=== PATIENT | female | born 1940 | race Caucasian/White ===

== ENCOUNTER 2018-04-27 05:36 | Emergency (ER) | payer MEDICARE, BC ==
--- NOTE | 2018-04-27 06:01 | Emergency Department Record ---
History of Present Illness - General Source: Patient Mode of Arrival: Ambulatory Limitations: No limitations - History of Present Illness Initial Comments: pt slipped in dog vomit and fell on faceand knees and left elbow. she had no loc. her main pain is in her head, face and l knee MD Complaint: Fall -: Minutes(s) Fall From: Standing When Fall Occurred: Just prior to arrival Fall Witnessed: No Place Fall Occurred: Home Loss of Consciousness: None Prolonged Down Time?: No Symptoms Prior to Fall: None Location: Head, Face Location - Extremities: Left: Elbow, Knee Severity: Mild Quality: Aching, Burning Context: Tripped/slipped Associated Symptoms: Denies - [place] Coma Scale Eye Response: (4) Open spontaneously Motor Response: (6) Obeys commands Verbal Response: (5) Oriented Maciej Total: 15 <Sarah Cordon - Last Filed: 04/27/18 06:59> <LAURA LINARES - Last Filed: 04/27/18 07:32> - General Chief Complaint: Fall Injury Stated Complaint: FELL HIT HEAD Time Seen by Provider: 04/27/18 05:48 - Related Data Home Medications Medication Instructions Recorded Confirmed Last Taken Amlodipine Besylate [Norvasc] 5 mg PO DAILY 04/27/18 04/27/18 Unknown Aspirin [Adult Low Dose Aspirin EC] 81 mg PO DAILY 04/27/18 04/27/18 Unknown Atorvastatin Calcium 40 mg PO QHS 04/27/18 04/27/18 Unknown Citalopram Hydrobromide 40 mg PO DAILY 04/27/18 04/27/18 Unknown [Citalopram HBr] Clopidogrel Bisulfate [Plavix] 75 mg PO DAILY 04/27/18 04/27/18 Unknown Levothyroxine Sodium [Synthroid] 50 mcg PO DAILY 04/27/18 04/27/18 Unknown Metoprolol Tartrate [Lopressor] 50 mg PO BID 04/27/18 04/27/18 Unknown Pantoprazole Sodium [Protonix] 40 mg PO DAILY 04/27/18 04/27/18 Unknown Ramipril [Altace] 10 mg PO BID 04/27/18 04/27/18 Unknown Allergies Allergy/AdvReac Type Severity Reaction Status Date / Time hydrocodone [From Vicodin] Allergy ITCHING Verified 04/27/18 05:40 Sulfa (Sulfonamide Allergy RASH Verified 04/27/18 05:40 Antibiotics) Review of Systems Reviewed: No additional complaints except as noted below Constitutional: Reports: As per HPI. Denies: Chills, Fever, Malaise, Night sweats, Weakness, Weight change Eyes: Reports: As per HPI. Denies: Eye discharge, Eye pain, Photophobia, Vision change ENT: Reports: As per HPI. Denies: Congestion, Dental pain, Ear pain, Epistaxis , Hearing loss, Throat pain Respiratory: Reports: As per HPI. Denies: Cough, Dyspnea, Hemoptysis, Stridor, Wheezes Cardiovascular: Reports: As per HPI. Denies: Arrhythmia, Chest pain, Dyspnea on exertion, Edema, Murmurs, Orthopnea, Palpitations, Paroxysmal nocturnal dyspnea, Rheumatic Fever, Syncope Endocrine: Reports: As per HPI. Denies: Fatigue, Heat or cold intolerance, Polydipsia, Polyuria Gastrointestinal: Reports: As per HPI. Denies: Abdominal pain, Constipation, Diarrhea, Hematemesis, Hematochezia, Melena, Nausea, Vomiting Genitourinary: Reports: As per HPI. Denies: Abnormal menses, Discharge, Dyspareunia, Dysuria, Frequency, Hematuria, Incontinence, Retention, Urgency Musculoskeletal: Reports: As per HPI. Denies: Arthralgia, Back pain, Gout, Joint swelling, Myalgia, Neck pain Skin: Reports: As per HPI. Denies: Bruising, Change in color, Change in hair/ nails, Lesions, Pruritus, Rash Neurological: Reports: As per HPI. Denies: Abnormal gait, Confusion, Headache, Numbness, Paresthesias, Seizure, Tingling, Tremors, Vertigo, Weakness Psychiatric: Reports: As per HPI. Denies: Anxiety, Auditory hallucinations, Depression, Homicidal thoughts, Suicidal thoughts, Visual hallucinations Hematological/Lymphatic: Reports: As per HPI. Denies: Anemia, Blood Clots, Easy bleeding, Easy bruising, Swollen glands <Sarah Cordon - Last Filed: 04/27/18 06:59> Physical Exam - General General Appearance: Alert, Oriented x3, Cooperative, Mild distress - Head Head exam: Normal inspection Head exam detail: Contusion, Hematoma Image of Face/Head: 1 - cintusion, hematoma 2 - contusion, hematoma - Eye Eye exam: Normal appearance, PERRL, EOMI Pupils: Normal accommodation - ENT ENT exam: Normal exam, Mucous membranes moist, Normal external ear exam, Normal orophraynx Ear exam: Normal external inspection. negative: External canal tenderness Nasal Exam: Normal inspection. negative: Discharge, Sinus tenderness Mouth exam: Normal external inspection, Tongue normal Teeth exam: Normal inspection. negative: Dental caries Throat exam: Normal inspection. negative: Tonsillar erythema, Tonsillar exudate - Neck Neck exam: Normal inspection, Full ROM. negative: Tenderness - Respiratory Respiratory exam: Normal lung sounds bilaterally. negative: Respiratory distress - Cardiovascular Cardiovascular Exam: Regular rate, Normal rhythm, Normal heart sounds - GI/Abdominal GI/Abdominal exam: Soft, Normal bowel sounds. negative: Tenderness - Rectal Rectal exam: Deferred - exam: Deferred - Extremities Extremities exam: Normal inspection, Full ROM, Normal capillary refill, Tenderness ( l knee w ecchymosis) - Back Back exam: Reports: Normal inspection, Full ROM. Denies: Muscle spasm, Rash noted, Tenderness - Neurological Neurological exam: Alert, CN II-XII intact, Normal gait, Oriented X3 - Psychiatric Psychiatric exam: Normal affect, Normal mood - Skin Skin exam: Dry, Intact, Normal color, Warm <Sarah Cordon - Last Filed: 04/27/18 06:59> Course - Reevaluation(s) Reevaluation #1: 04/27/18 07:01 care being assumed by dr linares <Sarah Cordon - Last Filed: 04/27/18 06:59> Vital Signs 04/27/18 05:39 Temperature 97.8 F Pulse Rate 71 Respiratory 16 Rate Blood Pressure 149/73 Pulse Ox 98 - Reevaluation(s) Reevaluation #2: The case was signed over at shift change. The pending results are the CT's and XR of the knee 04/27/18 07:00 04/27/18 07:20 The HCT was negative for acute process. Right forehead contusion noted. 04/27/18 07:[address] scan was read as no acute injury. 04/27/18 07:31 The knee XR is negative The patient states no new pain have developed We discussed the results, home care, reasons to return for a recheck if any concerns <LAURA LINARES - Last Filed: 04/27/18 07:32> Medical Decision Making - Lab Data Lab Results 04/27/18 Range/Units 05:47 Ethyl Alcohol 0.000 (0-0.010) g/dL <LAURA LINARES - Last Filed: 04/27/18 07:32> Disposition Disposition: Discharge <Sarah Cordon - Last Filed: 04/27/18 06:59> Time of Disposition: 07:32 <LAURA LINARES - Last Filed: 04/27/18 07:32> Clinical Impression: Head injury Qualifiers: Encounter type: initial encounter Qualified Code(s): S09.90XA - Unspecified injury of head, initial encounter Facial contusion Qualifiers: Encounter type: initial encounter Qualified Code(s): S00.83XA - Contusion of other part of head, initial encounter Contusion, knee Qualifiers: Encounter type: initial encounter Laterality: left Qualified Code(s): S80.02XA - Contusion of left knee, initial encounter Disposition: Home, Self-Care Condition: (1) Good Instructions: Head Injury (ED), Contusion in Adults (ED) Additional Instructions: follow up with family doctor. return sooner if worse. ice to sore areas Forms: Patient Portal Access Quality - Blood Pressure Screening Does Patient Have Any of the Following: No Blood Pressure Classification: Hypertensive Reading Systolic Measurement: 149 Diastolic Measurement: 73 <Sarah Cordon - Last Filed: 04/27/18 06:59> - Quality Measures Quality Measures: Blunt Head Trauma (>2yr) - Blunt Head Trauma - Adult Quality Measure: Measure #415: Utilization of CT for Minor Blunt Head Trauma ICD10 Codes Entered: Yes [place] Score: Please complete [place] Coma Scale above - Blood Pressure Screening Does Patient Have Any of the Following: No Blood Pressure Classification: Hypertensive Reading Systolic Measurement: 149 Diastolic Measurement: 73 <LAURA LINARES - Last Filed: 04/27/18 07:32>
--- NOTE | 2018-04-27 10:38 | CT SCAN REPORT ---
DATE: 04/27/2018. EXAM: CT OF THE BRAIN WITHOUT CONTRAST. HISTORY: FALL. TECHNIQUE: Sequential axial images were obtained from the foramen magna to the vertex without contrast administration. FINDINGS: Brain volume is normal. There is no large territorial infarct, hemorrhage, mass effect, or midline shift. No extra-axial fluid collection. The orbits, paranasal sinuses, and mastoid air cells are normal. There is a right frontal scalp hematoma. IMPRESSION: 1. NO ACUTE INTRACRANIAL ABNORMALITIES APPRECIATED. 2. RIGHT FRONTAL SCALP HEMATOMA. JOB NUMBER: [id number] MTDD
--- NOTE | 2018-04-27 10:45 | CT SCAN REPORT ---
DATE: 04/27/2018. EXAM: CT OF THE FACIAL BONES WITHOUT CONTRAST. HISTORY: PAIN. TECHNIQUE: Sequential axial images were obtained through the facial bones without intravenous contrast administration. Sagittal and coronal reformatted images were performed. FINDINGS: The paranasal sinuses are well aerated. The orbital rims are intact. No air fluid level. The ostiomeatal complexes are patent. Zygomatic arch is intact. The mandible is intact. The skull base is intact. There is degenerative change of the right temporomandibular joint. IMPRESSION: NO FACIAL BONE FRACTURE DEFORMITY IS APPRECIATED. RIGHT FRONTAL SCALP HEMATOMA. JOB NUMBER: [id number] MTDD
--- NOTE | 2018-04-27 10:53 | RADIOLOGY REPORT ---
DATE: 04/27/2018. EXAM: LEFT KNEE. HISTORY: INJURY. TECHNIQUE: Four views of the left knee were performed. FINDINGS: The patient is status post left knee arthroplasty. There is prepatellar soft tissue swelling. No evidence of fracture. No joint effusion. IMPRESSION: LEFT KNEE ARTHROPLASTY SURGICAL CHANGE. PREPATELLAR SOFT TISSUE SWELLING. JOB NUMBER: [id number] MTDD
== END 2018-04-27 07:42 | disposition home or self-care (01) ==
LOC: ER 05:36
DX: S00.83XA Contusion of other part of head, initial encounter (principal); S80.02XA Contusion of left knee, initial encounter; S09.90XA Unspecified injury of head, initial encounter; M25.522 Pain in left elbow; W01.0XXA Fall on same level from slipping, tripping and stumbling without subsequent striking against object, initial encounter; Y92.009 Unspecified place in unspecified non-institutional (private) residence as the place of occurrence of the external cause; Z79.01 Long term (current) use of anticoagulants
CPT/HCPCS: 99283; 99284; 73564; 70450; 70486; G0480; 80320